=== PATIENT | female | born 1960 | race Caucasian/White ===

== ENCOUNTER 2022-04-19 11:36 | Day surgery (SDC) | payer OTHER ==
[~2022-04-19] VITALS: Ht 162.6 cm; Wt 77.0 kg
[~2022-04-19 11:36] MED LIST: BUSPIRONE HCL5 MG PO; MELOXICAM5 MG PO; METAMUCIL PACK3.4 GM PO; METHOCARBAMOL500 MG PO; SENOKOT8.6 MG PO; TRAZODONE HCL50 MG PO; ZOLOFT25 MG PO
--- NOTE | 2022-04-19 15:00 | NUR ---
04/19/22 1500 Sheets,Stephanie 1454 PT ARRIVED TO PACU TALKING TO RN, PT DENIES CONCERNS. PT ENCOURAGED TO PASS GAS.
--- NOTE | 2022-04-20 13:20 | OR ---
[facility] [address] [place], [place] [address] Signed DATE OF OPERATION: 04/19/2022 SURGEON: Osvaldo Clarek MD PREOPERATIVE DIAGNOSIS: Chronic long-standing constipation. POSTOPERATIVE DIAGNOSES: 1. 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 2. Minimal diverticular changes throughout colon. 3. Polyps x2 (hepatic flexure, transverse colon). PROCEDURE: Total colonoscopy to cecum with biopsy of cecum and cold morcellation polypectomy x2. ANESTHESIA: Intravenous sedation, fentanyl 100 mcg, Versed 6 mg. INDICATION: This 61-year-old white woman is a patient of Arnav Potts has chronic constipation issues. She feels that her colon is "broken." She last underwent colonoscopy in 2011, which showed no evidence of abnormality. Biopsies of the cecum, rectum and splenic flexure showed only nonspecific chronic inflammation. She does require Senokot on a daily basis and takes Metamucil twice a day. The use of MiraLAX has been associated with diarrhea alternating with constipation. She has no family history of colon cancer. She is admitted to undergo colonoscopy at this time to better characterize the problem as she may well have an issue of colonic inertia. She understands the risk of colonoscopy including but not limited to bleeding, infection, and perforation and wished to proceed. FINDINGS: The prep was good. Complete colonoscopy was undertaken of the cecum without question. She has no sign of obstruction, stricture, or neoplasm. She had two very small polyps, one of the transverse colon, the other the hepatic flexure, which may well be lymphoid aggregates rather than adenomatous polyps. There was melanosis coli noted of the cecum. Biopsies obtained there. DESCRIPTION OF PROCEDURE: The patient was brought to the endoscopy suite and placed in the lateral decubitus position, given intravenous sedation to the point of slurred speech and nystagmus. Electronically Signed By: OSVALDO CLARKE MD 04/20/22 1320 PATIENT NAME: LEA ETIENNE OPERATIVE REPORT DATE OF : 64 REPORT #: [id number] PHYSICIAN: OSVALDO CLARKE MD PCP: ARNAV POTTS REPORT IS CONFIDENTIAL AND NOT TO BE RELEASED WITHOUT AUTHORIZATION [facility] [address] [place], [place] [address] Signed Digital rectal examination was normal. An Olympus video colonoscope was passed in the rectum and manipulated throughout the colon. Ultimately, the scope was passed to the right colon. Abdominal wall stabilization was beneficial in advancing the scope and ultimately advanced to the cecum itself. The cecum had a pigmented appearance for which melanosis coli was considered likely. Biopsies were obtained. The scope was withdrawn from that point and a small polyp at the hepatic flexure was biopsied. This may have been an lymphoid aggregate other than the adenomatous polyp. Another similar lesion was noted in the left transverse colon. This too was excised. Further withdrawal showed no other abnormalities of concern. The scope was retroflexed showing no sign of low rectal abnormality. The scope was removed and the patient taken to the recovery room in good condition. CONCLUDING DIAGNOSIS: The patient may have findings of colonic inertia or irritable bowel syndrome, constipation predominant. PLAN: Her regimen of MiraLAX and Citrucel was poorly tolerated previously. A more recent approach with Senokot and Metamucil twice a day has been somewhat helpful. Consideration will be made for Linzess medication on the basis of chronic constipation. We will order this and see if it is covered by her insurance. If not, we will make other arrangements. We will see her back in the office in 4 to 6 weeks. Followup for response to therapy. MD SHELLI King/SOBIAL /[id number] cc: MELISSA Lopez Electronically Signed By: OSVALDO CLARKE MD 04/20/22 1320 PATIENT NAME: LEA ETIENNE OPERATIVE REPORT DATE OF : 64 REPORT #: [id number] PHYSICIAN: OSVALDO CLARKE MD PCP: ARNAV POTTS REPORT IS CONFIDENTIAL AND NOT TO BE RELEASED WITHOUT AUTHORIZATION [facility] [address] [facility] [place] [address] Signed Copies: ARNAV POTTS ~ Electronically Signed By: OSVALDO CLARKE MD 04/20/22 1320 PATIENT NAME: LEA ETIENNE OPERATIVE REPORT DATE OF : 64 REPORT #: [id number] PHYSICIAN: OSVALDO CLARKE MD PCP: ARNAV POTTS REPORT IS CONFIDENTIAL AND NOT TO BE RELEASED WITHOUT AUTHORIZATION
--- NOTE | 2022-04-22 06:00 | PATH ---
[facility] [address] [place], [place] [address] Signed SPECIMEN(S): A HEPATIC FLEXURE COLON POLYP SPECIMEN(S): B CECUM COLON BIOPSIES SPECIMEN(S): C TRANSVERSE COLON POLYPS SPECIMEN SOURCE: A. HEPATIC FLEXURE COLON POLYP B. CECUM COLON BIOPSIES C. TRANSVERSE COLON POLYPS CLINICAL HISTORY: Chronic idiopathic constipation. Postop diagnosis: Diverticulosis, polyps x 2 FINAL PATHOLOGIC DIAGNOSIS: A. Hepatic flexure polyp, polypectomy: - Tubular adenoma. - Negative for high-grade dysplasia and malignancy. B. Cecum colon, biopsies: - Benign colonic mucosa with melanosis coli. - Negative for acute inflammation, granulomata, and microscopic colitis. C. Transverse colon polyps, polypectomy: - Fragments of hyperplastic polyp. DF:cml:C2NR MICROSCOPIC EXAMINATION: Histologic sections of all submitted blocks are examined by light microscopy. These findings, together with the gross examination, support the pathologic diagnosis. GROSS DESCRIPTION: A. The specimen, labeled and designated "Jes Etienne," and designated on the requisition "hepatic flexure polyp," is received in formalin and consists of one joseph soft tissue fragment that is 0.3 cm in greatest dimension. The specimen is entirely submitted in (A1). B. The specimen, labeled and designated "Jes Etienne," and designated on the requisition "cecum biopsies," is received in formalin and consists of multiple joseph soft tissue fragments that measure 0.1 to 0.4 cm in greatest dimension. The specimen is entirely submitted in (B1). C. The specimen, labeled and designated "Jes Etienne," and designated on the requisition "transverse colon polyps," is received in formalin and consists of two joseph soft tissue fragments that PATIENT NAME: JES ETIENNE PATHOLOGY DATE OF : 64 REPORT #: [id number] PHYSICIAN: MICKI PATHOLOGY PCP: ARNAV POTTS REPORT IS CONFIDENTIAL AND NOT TO BE RELEASED WITHOUT AUTHORIZATION [facility] [address] [place], [place] [address] Signed measure 0.2 and 0.3 cm in greatest dimension. The specimen is entirely submitted in (C1). FB (under the direct supervision of a pathologist) PERFORMING LABORATORY: The technical component was performed by [employer], [address] [place] [address] (CLIA# [id number]). Professional interpretation was performed by [employer], [facility] [place], [address] [place] [id number] (CLIA#: [id number]) Diagnostician: Felton Zuniga DO Pathologist Electronically Signed 04/21/2022 Copies: ~ PATIENT NAME: JES ETIENNE PATHOLOGY DATE OF : 64 REPORT #: [id number] PHYSICIAN: [facility] PCP: ARNAV POTTS REPORT IS CONFIDENTIAL AND NOT TO BE RELEASED WITHOUT AUTHORIZATION
== END 2022-04-19 15:34 | disposition home or self-care (01) ==
LOC: OPS 11:36 → DS 11:36 → OPS 13:00 → DS 13:00 → OPS 15:34
PROVIDERS: ATTEND Surgery
PROC: 0DBL8ZX Excision of Transverse Colon, Via Natural or Artificial Opening Endoscopic, Diagnostic (ICD-10-PCS; 2022-04-19)
PROC: 0DBH8ZX Excision of Cecum, Via Natural or Artificial Opening Endoscopic, Diagnostic (ICD-10-PCS; principal; 2022-04-19 13:00)
DX: K59.04 Chronic idiopathic constipation (principal); K57.30 Diverticulosis of large intestine without perforation or abscess without bleeding; D12.3 Benign neoplasm of transverse colon; K63.89 Other specified diseases of intestine; F41.9 Anxiety disorder, unspecified; Z90.49 Acquired absence of other specified parts of digestive tract; Z86.59 Personal history of other mental and behavioral disorders; Z88.0 Allergy status to penicillin; Z79.899 Other long term (current) drug therapy
CPT/HCPCS: 99153; G0500; J2250; J3010; J7121

== ENCOUNTER 2024-08-08 09:36 | Day surgery (SDC) | payer OTHER ==
[~2024-08-08] VITALS: Ht 162.6 cm; Wt 81.8 kg
[~2024-08-08 09:36] MED LIST changes: +BUSPIRONE HCL10 MG PO; +CLONAZEPAM0.5 MG PO; +DILTIAZEM 24HR360 MG PO; +IBLOOD GLUCOSE TEST STRIP 1 EA TEST VI PRN; +LACTATED RINGER'S 1,000 ML IV SCH; +LIDOCAINE HCL 1% 5 ML SDV INJ ONE; +MIDAZOLAM HCL 5 MG/5 ML VIAL IV PRN; +MILI 0.25-0.031 EAC1 PO; +PROMETHAZINE HC25 M1 PO; +SERTRALINE HCL100 MG PO; +TRAZODONE HCL100 MG PO; +fentaNYL citrate 100 MCG/2 ML VIAL IV PRN
[2024-08-08 10:08] VITALS: BP 113/96
[2024-08-08] MEDS ORDERED: fentaNYL citrate 100 MCG/2 ML VIAL ONE (10:26)
[2024-08-08] MEDS ORDERED: MIDAZOLAM HCL 5 MG/5 ML VIAL ONE (10:26)
--- NOTE | 2024-08-08 11:36 | NUR ---
08/08/24 1136 Micki Worthy 1133-PATIENT ARRIVED TO PACU ON 2L NC RR EVEN. PATIENT AWAKE LAYING LEFT LATERAL DENIES PAIN OR NAUSEA. ENCOURAGED TO PASS GAS. SR HR 80'S
[2024-08-08 12:10] VITALS: BP 141/78
--- NOTE | 2024-08-08 15:53 | OR ---
[facility] [address] [place], [place] [address] Signed DATE OF OPERATION: 08/08/2024 SURGEON: Osvaldo Clarke MD PREOPERATIVE DIAGNOSES: 1. Probable irritable bowel syndrome, diarrhea alternating with constipation, diarrhea predominant. 2. History of polyps in 2022. POSTOPERATIVE DIAGNOSES: 1. No evidence of recurrent or new polyps. 2. Melanosis coli of right colon. No evidence of other abnormality. PROCEDURE: Total colonoscopy to cecum with biopsy of cecum and rectum. ANESTHESIA: Intravenous sedation fentanyl 150 mcg and Versed 6 mg. INDICATION: This 64-year-old white woman is a patient of MELISSA Zaragoza. She is known to me from the past having undergone colonoscopy in 2022 where she was found to have a tubular adenoma and hyperplastic polyps. She has clinical symptoms highly suggestive of irritable bowel syndrome, diarrhea predominant. She is now relatively well managed with Metamucil and Senokot as her primary mode of bowel control issues. She has had sphincter control problems in the past as well, though that is not a dominant issue now. She is now to undergo colonoscopy. Understands the risk of bleeding, infection, and perforation. FINDINGS: The prep was good. Complete colonoscopy was undertaken of the cecum. Melanosis coli was noted of the cecum and right colon. There was no evidence of recurrent or new polyp. No diverticula and no obvious inflammation. DESCRIPTION OF PROCEDURE: The patient was brought to the endoscopy suite and placed in lateral decubitus position, given intravenous sedation to the point of slurred speech and nystagmus with full cardiopulmonary monitoring. Digital rectal examination was normal. An Olympus video colonoscope was passed in the rectum and manipulated throughout the Electronically Signed By: OSVALDO CLARKE MD 08/08/24 1553 PATIENT NAME: LEA ETIENNE OPERATIVE REPORT DATE OF : 64 REPORT #: [id number] PHYSICIAN: OSVALDO CLARKE MD PCP: ARNAV POTTS REPORT IS CONFIDENTIAL AND NOT TO BE RELEASED WITHOUT AUTHORIZATION [facility] [address] [place], [place] [address] Signed colon, ultimately intubating the cecum itself. The ileocecal valve and appendiceal orifice were normal. Biopsies were taken of the cecum as there was melanosis coli. Scope was withdrawn. Examination throughout showed no sign of polyps or diverticular formation. The colon was normal appearing. Biopsies were obtained to assess for occult colitis. Scope was removed. The patient was taken to recovery room in good condition. CONCLUDING DIAGNOSIS: Probable irritable bowel syndrome. PLAN: Would recommend continued regimen of Metamucil and Senokot as she is doing. Would offer low FODMAP diet trial. We will ask her to see me back in 6 to 8 weeks and we will assess her progress. MD SHELLI iKng/GABI /[id number] cc: MELISSA Zaragoza Copies: ARNAV POTTS ~ Electronically Signed By: OSVALDO CLARKE MD 08/08/24 1553 PATIENT NAME: LEA ETIENNE TANG OPERATIVE REPORT DATE OF : 64 REPORT #: [id number] PHYSICIAN: OSVALDO CLARKE MD PCP: ARNAV POTTS REPORT IS CONFIDENTIAL AND NOT TO BE RELEASED WITHOUT AUTHORIZATION
--- NOTE | 2024-08-12 14:31 | PATH ---
[facility] [address] [place], [place] [address] Signed SPECIMEN(S): A CECUM COLON BIOPSY SPECIMEN(S): B RECTUM SPECIMEN SOURCE: A. CECUM COLON BIOPSY B. RECTUM CLINICAL HISTORY: Chronic constipation. Post-normal A/B) biopsy FINAL PATHOLOGIC DIAGNOSIS: A. Cecum colon biopsy: - Colonic mucosa with slight reactive features, negative for epithelial dysplasia or pathologic inflammation. - Incidental melanosis coli. B. Rectum biopsy: - Colonic mucosa with slight reactive features, negative for epithelial dysplasia or pathologic inflammation. - Incidental melanosis coli. JVR:clv MICROSCOPIC EXAMINATION: Histologic sections of all submitted blocks are examined by light microscopy. These findings, together with the gross examination, support the pathologic diagnosis. GROSS DESCRIPTION: A. The specimen, labeled and designated "Codi Etienne, cecum colon biopsy," is received in formalin and consists of six joseph soft tissue fragments, ranging from 0.2-0.5 cm. Entirely submitted in (A1). B. The specimen, labeled and designated "Codi Etienne, rectum," is received in formalin and consists of two joseph soft tissue fragments, ranging from 0.4-0.5 cm. Entirely submitted in (B1). AB (under the direct supervision of a pathologist) The Gross Description was prepared using a voice recognition system. The report was reviewed for accuracy; however, sound-alike word errors, addition and/or deletions may occur. If there is any question about this report, please contact Client Services. PERFORMING LABORATORY: PATIENT NAME: LEA ETIENNE PATHOLOGY DATE OF : 64 REPORT #: [id number] PHYSICIAN: MICKI DALTON PCP: ARNAV POTTS REPORT IS CONFIDENTIAL AND NOT TO BE RELEASED WITHOUT AUTHORIZATION [facility] [address] [place] [place] [address] Signed Technical component was performed by [facility], [address] [place] [address] (CLIA# [id number]). Professional interpretation was performed by [facility] [address] [address] (CLIA#: [id number]). Diagnostician: Everette Rodriguez MD Pathologist Electronically Signed 08/12/2024 Copies: ~ PATIENT NAME: LEA ETIENNE PATHOLOGY DATE OF : 64 REPORT #: [id number] PHYSICIAN: MICKI DALTON PCP: ARNAV POTTS REPORT IS CONFIDENTIAL AND NOT TO BE RELEASED WITHOUT AUTHORIZATION
== END 2024-08-08 12:20 | disposition home or self-care (01) ==
LOC: DS 09:36
PROVIDERS: ATTEND Surgery
PROC: 0DBP8ZX Excision of Rectum, Via Natural or Artificial Opening Endoscopic, Diagnostic (ICD-10-PCS; 2024-08-08)
PROC: 0DBH8ZX Excision of Cecum, Via Natural or Artificial Opening Endoscopic, Diagnostic (ICD-10-PCS; principal; 2024-08-08 10:30)
DX: K59.04 Chronic idiopathic constipation (principal); K63.89 Other specified diseases of intestine; F41.9 Anxiety disorder, unspecified; I10 Essential (primary) hypertension; Z86.59 Personal history of other mental and behavioral disorders; Z88.0 Allergy status to penicillin; Z79.899 Other long term (current) drug therapy
CPT/HCPCS: 99153; G0500; J2250; J3010; J7121